=== PATIENT | male | born 1995 | race Caucasian/White ===

== ENCOUNTER 2024-10-07 13:35 | Emergency (ER) | payer SELFPAY ==
--- NOTE | 2024-10-07 13:41 | ECG_ITS ---
APPROVED REPORT Exam: Resting ECG HR:84 bpm ECG Measurements Heart Rate 84 AXES DE 120 P 41 QRSd 105 QRS 58 QT 317 T 60 QTc 358 Conclusion SINUS RHYTHM NORMAL ECG Electronically signed by : SHAY LYNN, 10/10/2024 07:11:52
--- NOTE | 2024-10-07 13:43 | ED_ITS ---
Discharge Plan Disposition Patient Disposition: Home, Self-Care Condition: Good Prescriptions Prescriptions: New prednisone 50 mg tablet 50 mg PO DAILY 5 Days Qty: 5 0RF cetirizine [Zyrtec] 10 mg tablet 10 mg PO DAILY Qty: 30 0RF Referrals Follow up/Referrals: Provider,Vinny, [Primary Care Provider] - See instructions Activity Restrictions/Add. Instructions Additional Instructions/Restrictions: Please cone picker your prescriptions at the pharmacy and take them as prescribed. Follow-up closely with your primary care provider. Return to the emergency department for new or worsening symptoms. Clinical Impressions Clinical Impression: Allergic reaction, Facial swelling, Rash Instructions Patient Instructions: DI for Eye Allergic Reaction, DI for General Allergic Reactions Print Language Print Language: Arabic Discharge ED Provider: Caroline Breaux General Adult HPI <Dave Yañez MD - Last Filed: 10/07/24 15:40> General Chief complaint: Allergic Reaction Stated complaint: red eyes itchy skin Time Seen by Provider: 10/07/24 13:39 Mode of Arrival: Ambulatory Source of Information: Patient Limitations: No Limitations History of Present Illness HPI narrative: Felipe Kwan is a 29M with no significant past medical history who presents to the emergency department for complaints of swelling and redness to his face and around his eyes that began last night. Patient reports feeling itchiness, redness and swelling that began on his face and is since spread to around his eyes with red splotches to his chest and right arm. He reports taking Benadryl last night and again this morning without improvement in symptoms. He denies any shortness of breath, feeling as if his throat is closing up, chest pain, abdominal pain, nausea, vomiting, diarrhea. Patient has never had allergic reactions before. He has not had any new soaps or detergents and has not eaten any new foods recently. 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 He denies any vision changes or headache. Related Data Previous Rx's ?Medication ?Instructions ?Recorded cetirizine 10 mg tablet (Zyrtec) 10 mg PO DAILY #30 tabs 10/07/24 prednisone 50 mg tablet 50 mg PO DAILY 5 days #5 tabs 10/07/24 Allergies Allergy/AdvReac Type Severity Reaction Status Date / Time No Known Allergies Allergy Verified 10/07/24 13:55 PFSH <Dave Yañez MD - Last Filed: 10/07/24 15:40> [facility] Disclaimer: The information contained in this section may have been updated after the patient was seen, as this information can be updated by other users. Medical History (Updated 10/07/24 @ 15:40 by Dave Yañez MD) No significant past medical history Surgical History (Updated 10/07/24 @ 13:55 by Hilda Porter RN) No significant past surgical history Family History (Updated 10/07/24 @ 13:55 by Hilda Porter RN) Other No significant family history Social History (Updated 10/07/24 @ 15:40 by Dave Yañez MD) Smoking Status: Never smoker alcohol intake: never current occupational status: employed Travel in the last 8 weeks: None Have you lived/traveled outside [place] in past 30 days?: No Contact w/someone who lives/traveled outside [place] past 30 days?: No Exposure to someone with infectious disease in past 14 days?: No Do you have a fever (greater than 100.4 F or 38 C)?: No Have you tested positive for COVID-19: No Exposed to someone with COVID-19 in past 14 days?: No Do you have a sore throat?: No Do you have a cough?: No Do you have any weakness?: No Do you have any diarrhea?: No Are you experiencing any unusual bleeding?: No Do you have any muscle aches/pain?: No Do you have any abdominal pain?: No Are you experiencing loss of taste or smell?: No <Dave Yañez MD - Last Filed: 10/07/24 15:40> ROS Obtained: Yes Systems reviewed as appropriate & no additional complaints except as documented Physical Exam <Dave Yañez MD - Last Filed: 10/07/24 15:40> General General appearance: alert and in no apparent distress Comment: Swelling and splotchy erythema to bilateral face and bilateral periorbital region. Head Head exam: atraumatic Eye Eye exam: Present normal appearance, PERRL and EOMI ENT ENT exam: Present normal external ear exam Neck Neck exam: Present full ROM Chest Chest inspection: Present symmetric chest wall rise Respiratory Respiratory exam: Present normal lung sounds bilaterally; Absent respiratory distress Cardiovascular Cardiovascular exam: Present regular rate and normal rhythm Abdominal Exam Abdominal exam: Present soft; Absent tenderness or guarding exam: Present deferred Extremities Exam Extremities exam: Present normal inspection Back Exam Back exam: Present normal inspection Neurological Exam Neurological exam: Present alert and oriented X3 Psychiatric Psychiatric exam: Present normal affect Skin Skin exam: Present warm and dry Medical Decision Making <Dave Yañez MD - Last Filed: 10/07/24 15:40> Medical Records Screening: Per USPSTF and CDC recommendations, given the prevalence of disease in our region, it is our hospital?s policy to screen for HIV and viral Hepatitis for all patients aged 18 and over and those with ongoing risk factors. Josh Inquiry Pt receiving controlled substance: No Vital Signs: 10/07/24 13:48 10/07/24 14:00 10/07/24 14:30 Temperature 98.6 F Temperature Source Oral Pulse Rate 93 H 63 Pulse Rate [Right Brachial] 80 Respiratory Rate 18 15 17 Blood Pressure 135/97 H 137/89 Blood Pressure [Right Arm] 165/99 H Blood Pressure Mean 109 Blood Pressure Mean [Right Arm] 121 Blood Pressure Source [Right Arm] Automatic Cuff Blood Pressure Position [Right Arm] Sitting 02 Sat by Pulse Oximetry 100 99 98 Oxygen Delivery Method Room Air Room Air Room Air 10/07/24 15:00 10/07/24 15:30 10/07/24 16:35 Temperature 98.6 F Temperature Source Pulse Rate 67 73 77 Pulse Rate [Right Brachial] Respiratory Rate 16 14 16 Blood Pressure 129/88 131/91 H 142/74 H Blood Pressure [Right Arm] Blood Pressure Mean Blood Pressure Mean [Right Arm] Blood Pressure Source [Right Arm] Blood Pressure Position [Right Arm] 02 Sat by Pulse Oximetry 100 99 Oxygen Delivery Method Room Air Room Air Lab Data Lab Results 10/07/24 13:45: WBC 6.7, RBC 5.58, Hgb 14.8, Hct 45.1, MCV 80.8, MCH 26.5 L, MCHC 32.8, RDW 14.6, Plt Count 219, MPV 10.0, Neut % (Auto) 60.7, Lymph % (Auto) 25.8, [place] % (Auto) 7.7, Eos % (Auto) 4.8, Baso % (Auto) 0.8, Neut # (Auto) 4.1, Lymph # (Auto) 1.7, [place] # (Auto) 0.5, Eos # (Auto) 0.3, Baso # (Auto) 0.1, Sodium 140, Potassium 4.3, Chloride 101, Carbon Dioxide 32 H, Anion Gap 11.3, BUN 18, Creatinine 0.90, Estimated Creat Clear 146, Estimated GFR 99, Est GFR ( Amer) 120, Glucose 107 H, Calcium 9.4, Total Bilirubin 0.3, AST 36, ALT 41, Alkaline Phosphatase 50, Total Protein 7.6, Albumin 4.9, Globulin 2.7, Albumin/Globulin Ratio 1.8, HCV Ab MAGDA w/Rflx PCR Qn Negative, HIV Ag/Ab Combo Qual Negative 10/07/24 13:45 10/07/24 13:45 Orders (Tests/Meds): ED MEDICATIONS Discontinued Medications Generic Name Dose Route Start Last Admin Trade Name Freq PRN Reason Stop Dose Admin Famotidine 20 mg 10/07/24 13:52 10/07/24 14:06 Famotidine 20mg/2ml Vial IV 10/07/24 13:53 20 mg ONCE ONE Administration Loratadine 10 mg 10/07/24 13:54 10/07/24 14:08 Loratadine 10mg Tablet PO 10/07/24 13:55 10 mg ONCE ONE Administration Prednisone 60 mg 10/07/24 13:52 10/07/24 14:06 Prednisone 20mg Tab PO 10/07/24 13:53 60 mg ONCE ONE Administration Sodium Chloride 8 ml 10/07/24 13:52 10/07/24 14:07 Sodium Chloride 0.9% 10ml Vial IV 11/06/24 13:51 8 ml NEEDED PRN Administration dilute pepcid ORDERS Category Date Time Status CBC w/Auto Diff [Complete Blood Count Auto Diff] Stat Lab 10/07/24 13:45 Completed CMP [Comprehensive Metabolic Panel] Stat Lab 10/07/24 13:45 Completed HIV Combo Stat Lab 10/07/24 13:45 Completed Hepatitis C Ab Qual. W/ RFX Stat Lab 10/07/24 13:45 Completed ECG Data Tracing #1: I reviewed this ECG and interpreted as documented below: Normal sinus rhythm. No ST elevation or depression. QTc normal at 358, MI interval normal at 120, ventricular rate of 84 bpm Medical Decision Narrative: Felipe Kwan is a 29M with no significant past medical history who presents to the emergency department for complaints of swelling and redness to his face and around his eyes that began last night. Patient reports feeling itchiness, redness and swelling that began on his face and is since spread to around his eyes with red splotches to his chest and right arm. He reports taking Benadryl last night and again this morning without improvement in symptoms. He denies any shortness of breath, feeling as if his throat is closing up, chest pain, abdominal pain, nausea, vomiting, diarrhea. Patient has never had allergic reactions before. He has not had any new soaps or detergents and has not eaten any new foods recently. 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 He denies any vision changes or headache. On arrival, patient is normotensive, heart rate within normal limits, breathing comfortably on room air with appropriate oxygen saturation. Afebrile. Physical exam, stated above, revealed an overall well-appearing male in no acute distress. He has swelling to bilateral face with splotchy erythema over the face, forehead and anterior chest and right arm. He is maintaining his airway appropriately. He does have some swelling in the bilateral periorbital region but pupils are equal round reactive to light and he is not having any vision changes with extraocular muscles intact. Abdomen is soft, nontender nondistended. He has not had any vomiting or diarrhea. Differential diagnosis includes, but is not limited to: Allergic reaction, viral exanthem, erythema multiforme. There is low concern for anaphylaxis at this time given that the patient's only organ system involved appears to be the skin. Will treat as an allergic reaction with famotidine, cetirizine and prednisone. Will observe in the emergency department to ensure symptoms do not worsen. At this time, the patient's care was handed off to the oncoming physician, Dr. Breaux, pending completion of his observation and he will likely require a course of steroids to go home with if symptoms do not worsen here in the emergency department. <Caroline Breaux, DO - Last Filed: 10/07/24 17:19> Vital Signs: 10/07/24 13:48 10/07/24 14:00 10/07/24 14:30 Temperature 98.6 F Temperature Source Oral Pulse Rate 93 H 63 Pulse Rate [Right Brachial] 80 Respiratory Rate 18 15 17 Blood Pressure 135/97 H 137/89 Blood Pressure [Right Arm] 165/99 H Blood Pressure Mean 109 Blood Pressure Mean [Right Arm] 121 Blood Pressure Source [Right Arm] Automatic Cuff Blood Pressure Position [Right Arm] Sitting 02 Sat by Pulse Oximetry 100 99 98 Oxygen Delivery Method Room Air Room Air Room Air 10/07/24 15:00 10/07/24 15:30 10/07/24 16:35 Temperature 98.6 F Temperature Source Pulse Rate 67 73 77 Pulse Rate [Right Brachial] Respiratory Rate 16 14 16 Blood Pressure 129/88 131/91 H 142/74 H Blood Pressure [Right Arm] Blood Pressure Mean Blood Pressure Mean [Right Arm] Blood Pressure Source [Right Arm] Blood Pressure Position [Right Arm] 02 Sat by Pulse Oximetry 100 99 Oxygen Delivery Method Room Air Room Air Lab Data Lab Results 10/07/24 13:45: WBC 6.7, RBC 5.58, Hgb 14.8, Hct 45.1, MCV 80.8, MCH 26.5 L, MCHC 32.8, RDW 14.6, Plt Count 219, MPV 10.0, Neut % (Auto) 60.7, Lymph % (Auto) 25.8, [place] % (Auto) 7.7, Eos % (Auto) 4.8, Baso % (Auto) 0.8, Neut # (Auto) 4.1, Lymph # (Auto) 1.7, [place] # (Auto) 0.5, Eos # (Auto) 0.3, Baso # (Auto) 0.1, Sodium 140, Potassium 4.3, Chloride 101, Carbon Dioxide 32 H, Anion Gap 11.3, BUN 18, Creatinine 0.90, Estimated Creat Clear 146, Estimated GFR 99, Est GFR ( Amer) 120, Glucose 107 H, Calcium 9.4, Total Bilirubin 0.3, AST 36, ALT 41, Alkaline Phosphatase 50, Total Protein 7.6, Albumin 4.9, Globulin 2.7, Albumin/Globulin Ratio 1.8, HCV Ab MAGDA w/Rflx PCR Qn Negative, HIV Ag/Ab Combo Qual Negative Orders (Tests/Meds): ED MEDICATIONS Discontinued Medications Generic Name Dose Route Start Last Admin Trade Name Freq PRN Reason Stop Dose Admin Famotidine 20 mg 10/07/24 13:52 10/07/24 14:06 Famotidine 20mg/2ml Vial IV 10/07/24 13:53 20 mg ONCE ONE Administration Loratadine 10 mg 10/07/24 13:54 10/07/24 14:08 Loratadine 10mg Tablet PO 10/07/24 13:55 10 mg ONCE ONE Administration Prednisone 60 mg 10/07/24 13:52 10/07/24 14:06 Prednisone 20mg Tab PO 10/07/24 13:53 60 mg ONCE ONE Administration Sodium Chloride 8 ml 10/07/24 13:52 10/07/24 14:07 Sodium Chloride 0.9% 10ml Vial IV 11/06/24 13:51 8 ml NEEDED PRN Administration dilute pepcid ORDERS Category Date Time Status CBC w/Auto Diff [Complete Blood Count Auto Diff] Stat Lab 10/07/24 13:45 Completed CMP [Comprehensive Metabolic Panel] Stat Lab 10/07/24 13:45 Completed HIV Combo Stat Lab 10/07/24 13:45 Completed Hepatitis C Ab Qual. W/ RFX Stat Lab 10/07/24 13:45 Completed Medical Decision Narrative: Felipe Kwan is a 29M with no significant past medical history who presents to the emergency department for complaints of swelling and redness to his face and around his eyes that began last night. Patient reports feeling itchiness, redness and swelling that began on his face and is since spread to around his eyes with red splotches to his chest and right arm. He reports taking Benadryl last night and again this morning without improvement in symptoms. He denies any shortness of breath, feeling as if his throat is closing up, chest pain, abdominal pain, nausea, vomiting, diarrhea. Patient has never had allergic reactions before. He has not had any new soaps or detergents and has not eaten any new foods recently. 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 He denies any vision changes or headache. On arrival, patient is normotensive, heart rate within normal limits, breathing comfortably on room air with appropriate oxygen saturation. Afebrile. Physical exam, stated above, revealed an overall well-appearing male in no acute distress. He has swelling to bilateral face with splotchy erythema over the face, forehead and anterior chest and right arm. He is maintaining his airway appropriately. He does have some swelling in the bilateral periorbital region but pupils are equal round reactive to light and he is not having any vision changes with extraocular muscles intact. Abdomen is soft, nontender nondistended. He has not had any vomiting or diarrhea. Differential diagnosis includes, but is not limited to: Allergic reaction, viral exanthem, erythema multiforme. There is low concern for anaphylaxis at this time given that the patient's only organ system involved appears to be the skin. Will treat as an allergic reaction with famotidine, cetirizine and prednisone. Will observe in the emergency department to ensure symptoms do not worsen. At this time, the patient's care was handed off to the oncoming physician, Dr. Breaux, pending completion of his observation and he will likely require a course of steroids to go home with if symptoms do not worsen here in the emergency department. DO Saeid: I assumed care of the patient at 1500. He was observed until 1630 with improvement in symptoms. No development of new symptoms. Given this, I feel it is appropriate for discharge home with prescription for prednisone and Zyrtec and instructions for close follow-up. Strict return precautions given. Critical Care <Dave Yañez MD - Last Filed: 10/07/24 15:40> Critical Care Time Critical Care Time: No
[2024-10-07 13:48] VITALS: BP 165/99; PULSE 80; RESP 18; TEMP 37; O2SAT 100; BMI 28.8
[2024-10-07 14:00] VITALS: BP 135/97; PULSE 93; RESP 15; O2SAT 99
[2024-10-07 14:06] LABS: Basophils # 0.1 K/mm3 (0-0.2); Basophils % 0.8 % (0.1-2.0); Eosinophils # 0.3 K/mm3 (0.0-0.4); Eosinophils % 4.8 % (0.1-12.0); Hematocrit 45.1 % (42.0-52.0); Hemoglobin 14.8 g/dL (14.1-18.0); Lymphocytes # 1.7 K/mm3 (0.7-4.5); Lymphocytes % 25.8 % (10-50); Mean Corpuscular HGB Conc 32.8 g/dL (31.8-35.4); Mean Corpuscular Hemoglobin 26.5 pg (27.0-31.2); Mean Corpuscular Volume 80.8 fl (80-94); Monocytes # 0.5 K/mm3 (0.1-1.0); Monocytes % 7.7 % (1.7-9.3); Neutrophils # 4.1 K/mm3 (1.8-7.8); Neutrophils % 60.7 % (37.0-80.0); Platelet Count 219 K/mm3 (142-424); Red Blood Count 5.58 M/mm3 (4.60-6.20); Red Cell Distribution Width 14.6 % (11.5-17.5); White Blood Count 6.7 K/mm3 (4.8-10.8)
[2024-10-07] MEDS: FAMOTIDINE 20MG/2ML VIAL 20 MG IV (14:06)
[2024-10-07] MEDS: predniSONE 20MG TAB 60 MG PO (14:06)
[2024-10-07] MEDS: SODIUM CHLORIDE 0.9% 10ML VIAL 8 ML IV (14:07)
[2024-10-07] MEDS: LORATADINE 10MG TABLET 10 MG PO (14:08)
[2024-10-07 14:10] LABS: Alanine Aminotransferase 41 U/L (12-78); Albumin Level 4.9 g/dl (3.5-5.0); Albumin/Globulin Ratio 1.8 (1.1-1.8); Alkaline Phosphatase 50 U/L (38-126); Anion Gap 11.3 mEq/L (5-15); Aspartate Amino Transferase 36 U/L (17-59); Bilirubin,Total 0.3 mg/dl (0.2-1.3); Blood Urea Nitrogen 18 mg/dl (9-20); Calcium 9.4 mg/dl (8.4-10.2); Carbon Dioxide 32 mmol/L (22.0-30.0); Chloride 101 mmol/L (98-107); Creatinine Clearance Estimated 146 mL/min (50-200); Estimated Glomerular Filt Rate 99 ml/min (>60); GFR (African American) 120 ML/MIN (>60); Globulin 2.7 g/dL (1.3-3.2); Glucose 107 mg/dl (74-100); Potassium 4.3 mmoL/L (3.5-5.1); Sodium 140 mmol/L (136-145); Total Protein,Serum 7.6 g/dl (6.3-8.2)
[2024-10-07 14:30] VITALS: BP 137/89; PULSE 63; RESP 17; O2SAT 98
--- NOTE | 2024-10-07 14:48 | PC.NURSE ---
Rounded on pt. He states he feels some better after medications. Voices no needs at this time.
[2024-10-07 14:52] LABS: HIV Combo NEGATIVE (Negative)
[2024-10-07 15:00] VITALS: BP 129/88; PULSE 67; RESP 16; O2SAT 100
[2024-10-07 15:00] LABS: Hepatitis C Ab Qual. W/ RFX NEGATIVE (Negative)
[2024-10-07 15:30] VITALS: BP 131/91; PULSE 73; RESP 14; O2SAT 99
[2024-10-07 16:35] VITALS: BP 142/74; PULSE 77; RESP 16; TEMP 37; O2SAT 98
== END 2024-10-07 16:46 | disposition home or self-care (01) ==
PROVIDERS: Student in an Organized Health Care Education/Training Program; Emergency Provider Emergency Medicine
DX: T78.40XA Allergy, unspecified, initial encounter (principal); R22.0 Localized swelling, mass and lump, head; R21 Rash and other nonspecific skin eruption
CPT/HCPCS: 80053; 85025; 86803; 87389; 93005; 99283; S0028